=== PATIENT | male | born 1995 | race Caucasian/White ===

== ENCOUNTER 2023-03-31 23:13 | Emergency (ER) | payer MEDICAID, SELFPAY ==
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
[2023-03-31 23:19] VITALS: BP 128/68; PULSE 85; RESP 16; TEMP 37.2; O2SAT 98
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
[2023-03-31] MEDS: Ibuprofen 800 MG TAB PO (23:31)
[2023-03-31] MEDS: Acetaminophen 500 MG TAB 1000 MG PO (23:31)
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
--- NOTE | 2023-04-02 17:54 | NUR.NOTE ---
Nursing Note: Accessed chart for [facility] billing purposes.
== END 2023-04-01 00:54 | disposition home or self-care (01) ==
PROVIDERS: Emergency Provider Student in an Organized Health Care Education/Training Program
DX: S69.82XA Other specified injuries of left wrist, hand and finger(s), initial encounter (principal); W50.1XXA Accidental kick by another person, initial encounter; Y93.83 Activity, rough housing and horseplay; Y99.9 Unspecified external cause status
CPT/HCPCS: 99283; 73130

== ENCOUNTER 2023-05-28 21:21 | Emergency (ER) | payer MEDICAID, SELFPAY ==
[2023-05-28 20:38] VITALS: BP 136/68; PULSE 86; RESP 15; TEMP 36.8; O2SAT 97
[2023-05-28 21:46] LABS: Abs Immature Grans 0.03 10^3/uL (0.0-0.06); Absolute Basophil Count 0.04 10^3/uL (0.0-0.2); Absolute Eosinophil Count 0.21 10^3/uL (0.0-0.7); Absolute Lymphocyte Count 3.14 10^3/uL (1.2-3.4); Absolute Monocyte Count 0.67 10^3/uL (0.1-0.8); Absolute Neutrophil Count 4.68 10^3/uL (1.2-6.7); Basophils % 0.5; Eosinophils % 2.4; HCT 37.2 % (40.0-50.0); HGB 12.5 g/dL (13.5-17.5); Immature Grans % 0.3; Lymphocytes % 35.8; MCH 25.3 pg (27.0-33.0); MCHC 33.6 % (32.0-36.0); MCV 75 fL (80-95); MPV 9.3 fL (8.0-11.0); Monocytes % 7.6; Neutrophils % 53.4; Platelet Count 358 10^3/uL (130-400); RBC 4.95 10^6/uL (4.36-5.78); RDW 15.8 % (11.8-14.1); RDW-SD 42.8 fL; WBC 8.77 10^3/uL (4.4-10.8)
--- NOTE | 2023-05-28 22:06 | ED.GENADUL_ITS ---
Discharge Plan Disposition Patient Disposition: Home Discharge Details Clinical Impression: Contusion of left leg Primary Care Provider: Unknown,Unknown ED Provider: Alexander Tucker Home Meds and New Rx's Prescriptions: Continued prazosin 2 mg Capsule 1 mg PO .QHS aripiprazole [Abilify] 10 mg Tablet 10 mg PO DAILY Discharge Instructions Instructions: Contusion in Adults (ED) Additional Instructions: You may apply ice, take [id number] Advil or acetaminophen as directed on packaging and perform activities as tolerated. It is recommended that you follow-up with primary care provider for reassessment Feel free to return the emergency department for any new or significant worsening of your symptoms. Referrals: Primary Care Provider [Outside] Medical Decision Making Patient presenting to the emergency department for chief complaint of left thigh pain. Patient reports approximately 1 month ago he started having some left thigh pain just above his knee. Patient denies any injury or trauma denies all other symptoms. Review of past medical history is noncontributory. Physical exam shows tenderness to the medial aspect of the left thigh and single area of ecchymosis. Did attempt bedside ultrasound which proximal and mid thigh showed good compressibility of deep venous system but difficult to visualize the remainder of the venous system. No official ultrasound is available at this time in the evening. We will perform labs for evaluation of possible DVT versus soft tissue contusion. Reviewed patient's labs and shows a slight anemia but platelets are normal CBC otherwise nondiagnostic, D-dimer is 111 considered negative, CMP shows elevated anion gap glucose and alk phos otherwise all other labs within normal range. Will discharge patient as I do not feel that findings are consistent with a DVT given negative D-dimer and for the most part bedside ultrasound shows compressibility of DVT system from what can be visualized. Patient recommend to follow-up with primary care provider. After discussion of diagnosis and plan of care patient has no further needs, questions, or concerns and states clear understanding to return to the emergency department for any worsening symptoms. This documentation was generated using [employer] system, please disregard any oddities of phrase or misspellings. Lab Data Lab results reviewed: Yes I reviewed the patient's lab results. HPI General Mode of arrival: EMS . Date/Time Provider Initiated Documentation: 05/28/23 21:32 . Limitations to Documentation: no limitations . Information obtained by: patient and RN notes reviewed . History of Present Illness 28 year old M presents to the emergency department with the chief complaint of Left thigh pain, described as moderate, Quality is described as aching, and is localized to the left and lower extremity. Patient started experiencing this month(s) (1) and it has been constant. No relieving factors improve symptom(s), No exacerbating factors reported . Patient notes no other symptoms.. Patient did receive the following treatments prior to arrival, none Related Data Home Medications Medication Instructions Recorded Confirmed aripiprazole 10 mg tablet (Abilify) 10 mg PO DAILY 03/31/23 05/28/23 prazosin 2 mg capsule 1 mg PO .QHS 03/31/23 05/28/23 Allergies Allergy/AdvReac Type Severity Reaction Status Date / Time cat dander Allergy Verified 05/28/23 21:47 penicillin V Allergy Rash Verified 05/28/23 21:47 zaleplon [From Sonata] Allergy Hives, Verified 05/28/23 21:47 intolerance to cold Tide Detergent Allergy Uncoded 05/28/23 21:47 General Stated Complaint: RashLesion SHAHRAM: 4 Review of Systems Constitutional Constitutional: Denies chills and Denies fever(s) Cardiovascular Cardiovascular: Denies chest pain and Denies dyspnea Respiratory Respiratory: Denies cough and Denies dyspnea Gastrointestinal Gastrointestinal: Denies abdominal pain Musculoskeletal Musculoskeletal: Reports as per HPI Integumentary/Breasts Skin/Breast: Reports unusual bruising PFSH All Active Problems (Updated 05/28/23 @ 22:30 by Alexander Tucker NP) Contusion of left leg (Acute) Conductive hearing loss, external ear (Acute) Impacted cerumen, bilateral (Acute) Nasal vestibulitis (Acute) Mood disorder (Acute) OCD (obsessive compulsive disorder) (Acute) PTSD (post-traumatic stress disorder) (Acute) ADHD (Acute) Surgical History History of colonoscopy History of esophagogastroduodenoscopy (EGD) History of placement of ear tubes History of tonsillectomy and adenoidectomy History of tooth extraction Family History Father Arthritis of back Mother Borderline diabetes Uses hearing aid Brother activity certified master locksmith [employer] Paternal Grandfather No problems noted. Paternal Grandmother No problems noted. Maternal Grandfather No problems noted. Maternal Grandmother No problems noted. Social History Smoking/Tobacco Use Status: Former Tobacco Use Smoking risk assessment performed?: Yes Alcohol Intake: never Drug use: Occasionally Substance use type: marijuana Household members: significant other and other Details: Mom current occupation: Unable to work/disabled Pets and animals: Yes Pets and animals: fish What is your relationship status?: living with partner Panel score (0-1 are the most socially isolated patients): 1 Exam Const General: cooperative, no acute distress and not ill appearing Orientation: alert, awake and oriented x3 HENMT Mouth: moist mucous membranes Resp Effort & Inspection: normal respiratory effort, able to speak in complete sentences and no respiratory distress Cardio Rate: regular rate Rhythm: regular rhythm Pulses: normal peripheral pulses Skin General skin exam: no rashes or lesions noted Neuro General: patient alert, patient awake, patient oriented x3, moves all extremities and no focal motor deficits Sensory Exam: no sensory deficits noted Extrem General: normal exam except as noted Left lower extremity: knee Details: tenderness Location: of the distal upper leg Details: medially and ecchymosis distal upper leg medial Details: single Course Vital Signs Vital signs: Vital Signs Temperature 36.8 C 05/28/23 20:38 Pulse 86 05/28/23 20:38 Respiratory Rate 15 05/28/23 20:38 Blood Pressure 136/68 05/28/23 20:38 Pulse Oximetry 97 05/28/23 20:38 Temperature 36.8 C 05/28/23 20:38 Temperature Source Oral 05/28/23 20:38 Pulse 86 05/28/23 20:38 Respiratory Rate 15 05/28/23 20:38 Respiratory Effort Normal 05/28/23 20:41 Blood Pressure 136/68 05/28/23 20:38 Blood Pressure Position Sitting 05/28/23 20:38 Pulse Oximetry 97 05/28/23 20:38 Oxygen Delivery Method Room Air 05/28/23 20:38 Oxygen Flow Rate 0 05/28/23 20:38 Pain Level 9 05/28/23 20:38 Lab/Test Results Lab/Test Results: Laboratory Tests Range/Units 05/28/23 21:28 WBC (4.4-10.8) 10^3/uL 8.77 RBC (4.36-5.78) 10^6/uL 4.95 Hgb (13.5-17.5) g/dL 12.5 L Hct (40.0-50.0) % 37.2 L MCV (80-95) fL 75 L MCH (27.0-33.0) pg 25.3 L MCHC (32.0-36.0) % 33.6 RDW (11.8-14.1) % 15.8 H Plt Count (130-400) 10^3/uL 358 MPV (8.0-11.0) fL 9.3 Immature Gran % 0.3 Neutrophils % 53.4 Lymphocytes % 35.8 Monocytes % 7.6 Eosinophils % 2.4 Basophils % 0.5 Nucleated RBC % (0.0-0.3) % 0.0 Absolute Neutrophils (1.2-6.7) 10^3/uL 4.68 Absolute Lymphocytes (1.2-3.4) 10^3/uL 3.14 Absolute Monocytes (0.1-0.8) 10^3/uL 0.67 Absolute Eosinophils (0.0-0.7) 10^3/uL 0.21 Absolute Basophils (0.0-0.2) 10^3/uL 0.04
[2023-05-28 22:09] LABS: Albumin 3.6 g/dL (3.4-5.0); Alkaline Phosphatase 175 U/L (46-116); Anion Gap 14.3 mmol/L (3-11); BUN 14 mg/dL (7-18); Bilirubin, Total 0.4 mg/dL (0.2-1.0); CO2 21.7 mmol/L (21.0-32.0); CREATININE 1.1 mg/dL (0.70-1.30); Calcium 8.7 mg/dL (8.5-10.1); Chloride 103 mmol/L (98-107); Estimated GFR 94.95 (mL/min/1.73m2); Glucose 128 mg/dL (74-106); INR 0.9 (0.9-1.1); PTT Activated 23.6 sec (21.5-31.9); Potassium 3.5 mmol/L (3.5-5.1); Prothrombin Time 9.1 sec (9.3-11.0); Sodium 139 mmol/L (136-145)
[2023-05-28 22:25] LABS: D-Dimer 111 ng/mlFEU (<500)
[2023-05-28] MEDS: Acetaminophen 500 MG TAB 1000 MG PO (22:25)
[2023-05-28 22:29] LABS: Total Protein 7.9 g/dL (6.4-8.2)
[2023-05-28 22:49] LABS: ALT 22 U/L (16-63)
== END 2023-05-28 22:32 | disposition home or self-care (01) ==
PROVIDERS: Emergency Provider Nurse Practitioner Family
DX: S80.12XA Contusion of left lower leg, initial encounter (principal); X58.XXXA Exposure to other specified factors, initial encounter
CPT/HCPCS: 80053; 99283; 85025; 85379; 85610; 85730

== ENCOUNTER 2025-03-17 20:44 | Emergency (ER) | payer SELFPAY ==
[2025-03-17 20:46] VITALS: BP 131/72; PULSE 79; RESP 18; TEMP 36.1; O2SAT 96
--- NOTE | 2025-03-17 21:25 | W.ED.GENAD ---
Discharge Plan Disposition Patient Disposition: Home Condition: Stable Discharge Details Clinical Impression: Abscess of axilla, right, Neck strain Primary Care Provider: None,None ED Provider: Florence Deleon Home Meds and New Rx's Prescriptions: New sulfamethoxazole-trimethoprim [Bactrim DS] 800-160 mg tablet 1 tab PO Q12H Qty: 14 0RF No Action melatonin 10 mg capsule 10 mg PO HS PRN albuterol sulfate 90 mcg/actuation HFA aerosol inhaler 2 puff inhalation Q6H PRN Rx Instructions: for bronchospasm hydroxyzine HCl 25 mg tablet 25 mg PO TID PRN ibuprofen 800 mg tablet 800 mg PO Q8H PRN prazosin 2 mg Capsule 1 mg PO .QHS Discharge Instructions Instructions: Neck Sprain (DC), Peter, Adult ED Additional Instructions: Your skin lesion is not yet to a level that would require incision and drainage. I would recommend continuing warm packs to help the progression of this. Take [id number] Tylenol and ibuprofen in the meantime for your neck strain and follow-up with your primary care doctor but return to the emergency department with any worsening symptoms or any other concerns. HPI General Date/Time Provider Initiated Documentation: 03/17/25 21:10. HPI Narrative: The patient is a 30-year-old male with history of PTSD who comes the emergency department for right axillary wound. Reports that he noticed it about a week ago. Denies any trauma or injury to the region. Reports he has not applied any creams or lotions to his armpit. Reports he has not used any new products. Denies insect bite or any animal contact to his axilla in spite of him living in a tent. Reports he has been applying a warm compress and it has not helped. Reports that he shaved for the first time in a month to days for better visualization of his armpit. Reports otherwise that he feels at baseline health apart from stiff neck. Reports that because he has been sleeping in a tent his neck has been bothering him on the right side. Reports he has not taken any medication to help with this symptom. Denies any fevers or chills with this. Denies history of similar type problem for the neck and axillary lesion. Related Data Home Medications ?Medication ?Instructions ?Recorded ?Confirmed prazosin 2 mg capsule 1 mg PO .QHS 03/31/23 03/17/25 albuterol sulfate 90 mcg/actuation 2 puff inhalation Q6H PRN 11/13/23 03/17/25 aerosol inhaler hydroxyzine HCl 25 mg tablet 25 mg PO TID PRN 11/13/23 03/17/25 ibuprofen 800 mg tablet 800 mg PO Q8H PRN 11/13/23 03/17/25 melatonin 10 mg capsule 10 mg PO HS PRN 04/15/24 03/17/25 sulfamethoxazole 800 1 tab PO Q12H #14 tabs 03/17/25 mg-trimethoprim 160 mg tablet (Bactrim DS) Previous Rx's ?Medication ?Instructions ?Recorded sulfamethoxazole 800 1 tab PO Q12H #14 tabs 03/17/25 mg-trimethoprim 160 mg tablet (Bactrim DS) Allergies Allergy/AdvReac Type Severity Reaction Status Date / Time penicillin V Allergy Rash Verified 03/17/25 20:53 Tide Detergent Allergy sneezing Uncoded 11/13/23 11:17 General Stated Complaint: RashLesion SHAHRAM: 4 Review of Systems Narrative: Review of systems are negative except as mentioned. Exam Narrative Exam Narrative: General appearance: The patient is alert, has no immediate need for airway protection and no signs of toxicity. Neck: No midline C-spine tenderness is noted to palpation but he does have right-sided paraspinal tenderness and spasm. Neurological: The patient is alert, awake and oriented x 3. the patient has intact sensation to light touch in bilateral upper extremities. Skin: On the right axilla the patient has area of erythema with edema but I do not yet appreciate any palpable induration of the appropriate for incision and drainage. It is about 2 cm in diameter without increased warmth to the touch. Course Vital Signs Vital signs: Vital Signs Temperature 36.1 C L 03/17/25 20:46 Pulse 79 03/17/25 20:46 Respiratory Rate 18 03/17/25 20:46 Blood Pressure 131/72 03/17/25 20:46 Pulse Oximetry 96 03/17/25 20:46 Temperature 36.1 C L 03/17/25 20:46 Pulse 79 03/17/25 20:46 Respiratory Rate 18 03/17/25 20:46 Blood Pressure 131/72 03/17/25 20:46 Blood Pressure Position Sitting 03/17/25 20:46 Pulse Oximetry 96 03/17/25 20:46 Oxygen Delivery Method Room Air 03/17/25 20:46 Oxygen Flow Rate 0 03/17/25 20:46 Pain Level 8 03/17/25 20:46 Comment 04/19 in neck 03/17/25 20:46 Medical Decision Making The patient has developing abscess however it is not yet to the level that would require incision and drainage. For this I recommended continued warm compresses but then I will start him on antibiotics as well. He will get prescription sent to his preferred pharmacy. He is asked to otherwise refrain from waxing and shaving. He is asked to observe for any worsening signs of infection and if this happens return to the emergency department immediately. He is asked to keep the wound clean and dry. In regards to the neck he is asked to take [id number] Tylenol ibuprofen. He will be discharged shortly. Quality:SDOH Health Related Social Needs: Health related social needs risk of homeless food insecurity material hardship house/econ circumstance daily activities Health related social needs details pt reports being homeless and disabled. PFSH All Active Problems (Updated 03/17/25 @ 21:29 by Florence Deleon DO) Neck strain (Acute) Abscess of axilla, right (Acute) Conductive hearing loss, external ear (Acute) Impacted cerumen, bilateral (Acute) Nasal vestibulitis (Acute) Mood disorder (Acute) OCD (obsessive compulsive disorder) (Acute) PTSD (post-traumatic stress disorder) (Acute) ADHD (Acute) Medical History (Updated 03/17/25 @ 21:29 by Florence Deleon DO) History of excessive cerumen Weight gain Myositis History of psychiatric hospitalization DH suicidal ideations 08/13/2019 Family history of diabetes mellitus grandmother ETD (eustachian tube dysfunction) Elevated alkaline phosphatase level Allergic rhinitis due to allergen Aerophagia Night terrors Chronic fatigue Adjustment disorder with depressed mood Bipolar 2 disorder Vitamin D deficiency JOE (obstructive sleep apnea) pt does not use cpap unable to use the mask Obesity (BMI 30-39.9) High triglycerides GERD (gastroesophageal reflux disease) Other chronic pain Moderate episode of recurrent major depressive disorder Mild intermittent asthma without complication Antisocial personality disorder Erectile disorder Delayed ejaculation Dysphagia Chronic abdominal pain High risk medication use Nausea & vomiting Unintended weight loss Abrasion foot/toe Anemia, mild Hoarseness of voice Dysphonia Surgical History History of esophagogastroduodenoscopy (EGD) History of colonoscopy History of tooth extraction History of placement of ear tubes History of tonsillectomy and adenoidectomy Family History (Updated 11/13/23 @ 11:15 by Debbie Vasquez RN) Father Arthritis of back Mother Borderline diabetes Uses hearing aid Sleep apnea Prediabetes Brother activity glass calibrator [employer] Paternal Grandfather No problems noted. Paternal Grandmother No problems noted. Maternal Grandfather No problems noted. Maternal Grandmother No problems noted. Aunt Cancer stage 3 cancer NOS Social History Smoking/Tobacco Use Status: Former Tobacco Use Smoking risk assessment performed?: Yes Alcohol Intake: current Alcohol Intake frequency: holidays/special occasions only Drug use: Occasionally Substance use type: marijuana Household members: significant other and other Details: Mom Housing: homeless current occupation: Unable to work/disabled Pets and animals: Yes Pets and animals: fish What is your relationship status?: living with partner Panel score (0-1 are the most socially isolated patients): 1
== END 2025-03-17 21:36 | disposition home or self-care (01) ==
LOC: ER 21:33
PROVIDERS: Emergency Provider Emergency Medicine
DX: L02.411 Cutaneous abscess of right axilla (principal); S16.1XXA Strain of muscle, fascia and tendon at neck level, initial encounter; Z87.891 Personal history of nicotine dependence; X58.XXXA Exposure to other specified factors, initial encounter
CPT/HCPCS: 99283

== ENCOUNTER 2025-07-25 14:56 | Emergency (ER) | payer MEDICAID, SELFPAY ==
[2025-07-25 14:59] VITALS: BP 110/55; PULSE 104; RESP 18; TEMP 36.4; O2SAT 95
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
== END 2025-07-25 15:52 | disposition home or self-care (01) ==
LOC: ER 15:58
PROVIDERS: Emergency Provider Emergency Medicine
DX: T65.891A Toxic effect of other specified substances, accidental (unintentional), initial encounter (principal); Z59.41 Food insecurity; Z59.87 Material hardship due to limited financial resources, not elsewhere classified; Z59.811 Housing instability, housed, with risk of homelessness
CPT/HCPCS: 99282; 99281